=== PATIENT | male | born 1960 | race African-American/Black ===

== ENCOUNTER → 2017-04-03 | Emergency (ER) | payer OTHER ==
[~2017-04-03] VITALS: Wt 90.0 kg
[~2017-04-03] MED LIST: COU2 PO; LABETALOL HCL 20MG INJ IV ONE
--- NOTE | 2017-04-03 14:26 | ERD ---
ER Documentation Chief Complaint Chief Complaint HEADACHE WITH HTN X 1 DAYS; OUT OF HTN MEDS X 1 WEEK HPI The patient is a 56-year-old male, thing to the ER because of intermittent diffuse headache that began today, has been out of his antihypertensive medication for 1 week. He denies blurred vision, dizziness, neck pain, chest pain, dyspnea, abdominal pain, vomiting, dysuria, diarrhea. He denies smoking, drinks socially denies any illicit drug. He keeps requesting for pain medication for his chronic left leg pain Past medical history: Hypertension, chronic left leg pain Past surgical history: Aortic valve replacement ROS All systems reviewed and are negative except as per history of present illness. Medications Home Meds Reported Medications Warfarin Sod (Coumadin) 2 Mg Tab, 2 MG PO DAILY, TAB 04/03/17 Allergies Allergies: Coded Allergies: No Known Allergy (Unverified , 04/03/17) PMhx/Soc History of Surgery: Yes (HEART VALVE REPLACEMENT) Anesthesia Reaction: No Hx Neurological Disorder: No Hx Respiratory Disorders: No Hx Cardiac Disorders: Yes (HYPERTENSION) Hx Psychiatric Problems: No Hx Miscellaneous Medical Probl: No Hx Alcohol Use: No Hx Substance Use: No Hx Tobacco Use: Yes Smoking Status: Current some day smoker Physical Exam Vitals Vital Signs Date Time Temp Pulse Resp B/P Pulse Ox O2 Delivery O2 Flow Rate FiO2 04/03/17 15:44 184/94 04/03/17 14:59 87 195/109 04/03/17 14:22 98.3 96 18 191/117 99 Physical Exam Const: No acute distress. Head: Atraumatic. Eyes: Normal Conjunctiva. ENT: Normal External Ears, Nose and Mouth. Neck: Full range of motion. No meningismus. Resp: Clear to auscultation bilaterally. Cardio: Regular rate and rhythm. Abd: Soft, non distended, normal bowel sounds, non tender. Skin: No petechiae or rashes. Back: No midline or flank tenderness. Ext: No cyanosis, or edema. Neur: Awake and alert. chronic left leg weakness Psych: Normal Mood and Affect. Result Diagram: 04/03/17 1445 04/03/17 1445 Results 24 hrs Laboratory Tests Test 04/03/17 14:45 04/03/17 15:15 White Blood Count 8.010^3/ul Red Blood Count 4.5210^6/ul Hemoglobin 14.2g/dl Hematocrit 42.2% Mean Corpuscular Volume 93.4fl Mean Corpuscular Hemoglobin 31.4pg Mean Corpuscular Hemoglobin Concent 33.6g/dl Red Cell Distribution Width 13.7% Platelet Count 12889^3/UL Mean Platelet Volume 11.6fl Neutrophils % 80.3% Lymphocytes % 11.4% Monocytes % 7.5% Eosinophils % 0.3% Basophils % 0.4% Nucleated Red Blood Cells % 0.0/100WBC Neutrophils # 6.410^3/ul Lymphocytes # 0.910^3/ul Monocytes # 0.610^3/ul Eosinophils # 0.010^3/ul Basophils # 0.010^3/ul Nucleated Red Blood Cells # 0.010^3/ul Prothrombin Time 20.4Sec Prothrombin Time Ratio 1.6 INR International Normalized Ratio 1.71 Activated Partial Thromboplast Time 33.0Sec Sodium Level 145mmol/L Potassium Level 3.6mmol/L Chloride Level 107mmol/L Carbon Dioxide Level 26mmol/L Anion Gap 16 Blood Urea Nitrogen 12mg/dl Creatinine 1.23mg/dl Glucose Level 98mg/dl Calcium Level 9.3mg/dl Ethyl Alcohol Level < 10.0mg/dl Urine Opiates Screen Negative Urine Barbiturates Negative Urine Amphetamines Screen Negative Urine Benzodiazepines Screen Negative Urine Cocaine Screen Negative Urine Cannabinoids Negative Current Medications Medications (Trade) Dose Ordered Sig/Mercedes Route PRN Reason Start Time Stop Time Status Last Admin Dose Admin Labetalol HCl (Labetalol) 20 mg ONCE ONCE IV 04/03/17 15:00 04/03/17 15:01 DC 04/03/17 15:00 Procedures/MDM MEDICAL MAKING DECISION: The patient is a 56-year-old male, presenting to the ER because of acute accelerated hypertension, acute headache. He was treated with labetalol 20 mg IV for acute accelerated hypertension with good response. He keeps asking for pain medication. I advised him that we need a brain CT prior to any medication. He did not want to have a brain CT scan and left AGAINST MEDICAL ADVICE. The patient signed out AGAINST MEDICAL ADVICE. Risks, benefits, alternatives were explained to the patient. Risks include but not limited to and permanent disability Disclaimer: Inadvertent spelling and grammatical errors are likely due to EHR/ dictation software use and do not reflect on the overall quality of patient care. Also, please note that the electronic time recorded on this note does not necessarily reflect the actual time of the patient encounter. Departure Diagnosis: Primary Impression: Accelerated hypertension Condition: Stable (AMA) NATLAIE STRANGE MD Apr 03, 2017 14:26
[2017-04-03 14:59] VITALS: PULSE 87
[2017-04-03 15:34] LABS: BASOPHILS % 0.4 % (0.0-2.0); EOSINOPHILS % 0.3 % (0.0-7.0); HEMATOCRIT 42.2 % (42.0-52.0); HEMOGLOBIN 14.2 g/dl (14.0-18.0); LYMPHOCYTES # 0.9 10^3/ul (0.8-2.9); LYMPHOCYTES % 11.4 % (15.0-51.0); MEAN CORPUSCULAR HEMOGLOBIN 31.4 pg (29.0-33.0); MEAN CORPUSCULAR HGB CONC 33.6 g/dl (32.0-37.0); MEAN CORPUSCULAR VOLUME 93.4 fl (82.0-101.0); MEAN PLATELET VOLUME 11.6 fl (7.4-10.4); MONOCYTE # 0.6 10^3/ul (0.3-0.9); MONOCYTES % 7.5 % (0.0-11.0); NEUTROPHIL # 6.4 10^3/ul (1.6-7.5); NEUTROPHILS % 80.3 % (39.0-77.0); PLATELET COUNT 152 10^3/UL (140-415); RED BLOOD COUNT 4.52 10^6/ul (4.70-6.10); RED CELL DISTRIBUTION WIDTH 13.7 % (11.5-14.5)
[2017-04-03 15:44] VITALS: BP 184/94
[2017-04-03 16:05] LABS: BARBITURATES Negative (NEGATIVE); BENZODIAZEPINES Negative (NEGATIVE); CANNABINOIDS Negative (NEGATIVE); COCAINE Negative (NEGATIVE); OPIATES Negative (NEGATIVE)
[2017-04-03 16:12] LABS: ANION GAP 16 (8-16); BLOOD UREA NITROGEN 12 mg/dl (7-20); CALCIUM 9.3 mg/dl (8.4-10.2); CARBON DIOXIDE 26 mmol/L (21-31); CHLORIDE 107 mmol/L (97-110); CREATININE 1.23 mg/dl (0.61-1.24); GLUCOSE 98 mg/dl (70-220); POTASSIUM 3.6 mmol/L (3.5-5.1); SODIUM 145 mmol/L (135-144)
[2017-04-03 16:17] LABS: ETHANOL < 10.0 mg/dl
[2017-04-03 16:24] LABS: INR 1.71; PROTIME 20.4 Sec (11.9-14.9); PT RATIO 1.6
== END | disposition left against medical advice (07) ==
LOC: E/R 14:19
DX: I10 Essential (primary) hypertension (principal); F17.210 Nicotine dependence, cigarettes, uncomplicated; R07.9 Chest pain, unspecified
CPT/HCPCS: 36415; 80048; 80306; 80307; 85025; 85610; 85730; 96374; Z7502

== ENCOUNTER 2017-04-13 15:38 | Emergency (ER) | payer OTHER ==
[~2017-04-13] VITALS: Ht 165.1 cm; Wt 80.0 kg
[~2017-04-13 15:38] MED LIST changes: -LABETALOL HCL 20MG INJ IV ONE
[2017-04-13 15:51] VITALS: Ht 165.1 cm; Wt 80.0 kg
--- NOTE | 2017-04-13 17:32 | ERD ---
ER Documentation Chief Complaint Chief Complaint BIT HIS TONGUE WHEN ASLEEP HPI This is a 56-year-old male with a history of a leaky valve status post replacement with a mechanical valve on Coumadin daily, chronic daily smoking history, who is presenting with tongue pain after excellently biting his tongue approximately 4 days ago. He notes that his tongue has looked black and blue on the right side. He states that he dropped that he was eating when he bit his tongue. He does not have a seizure history, and he woke up right after he bit his tongue. He does not believe that he had a seizure. The patient states that it is been painful to eat since excellently biting his tongue. He is hoping for something for the pain. If his pain can get under control, he would like to be discharged and is requesting a cab voucher. The patient has a secondary complaint of a sore throat and very congested cough over the last week. He denies feeling sick otherwise. The patient denies fever or chills. The patient has had no headache or vision changes. The patient does not endorse neck or back pain. The patient denies lightheadedness or dizziness. The patient has had no chest pain or shortness of breath or trouble breathing. The patient denies nausea or vomiting. The patient denies abdominal pain or changes to bowel movements or urination. The patient has had no focal deficits. The patient has had no weakness or numbness or tingling to the face or extremities. ROS All systems reviewed and are negative except as per history of present illness. Medications Home Meds Reported Medications Warfarin Sod (Coumadin) 2 Mg Tab, 2 MG PO DAILY, TAB 04/03/17 Allergies Allergies: Coded Allergies: No Known Allergy (Unverified , 04/03/17) PMhx/Soc History of Surgery: Yes (HEART VALVE REPLACEMENT) Anesthesia Reaction: No Hx Neurological Disorder: No Hx Respiratory Disorders: No Hx Cardiac Disorders: Yes (HYPERTENSION) Hx Psychiatric Problems: No Hx Miscellaneous Medical Probl: No Hx Alcohol Use: No Hx Substance Use: No Hx Tobacco Use: Yes FmHx Family History: No coronary disease, No diabetes Physical Exam Vitals Vital Signs Date Time Temp Pulse Resp B/P Pulse Ox O2 Delivery O2 Flow Rate FiO2 04/13/17 15:51 98.1 89 18 134/89 99 Physical Exam Const: No apparent distress, well-developed, well-nourished Head: Normocephalic, Atraumatic Eyes: Normal Conjunctiva. Extraocular movements intact. Pupils equal, round and reactive to light ENT: Normal External Ears, Nose and Mouth. Mild edema and bruising to the right side of the tongue. No oral pharyngeal exudate or edema or erythema or purulence or asymmetry. Neck: Full range of motion. No meningismus. Resp: Clear to auscultation bilaterally, No wheezes, rales or rhonchi. Cardio: Regular rate and rhythm. Harsh systolic murmur with end systolic click. No rubs or gallops Abd: Soft, non tender, non distended. Normal bowel sounds Skin: No petechiae or rashes Back: No midline tenderness. No CVA tenderness Ext: No cyanosis, or edema Neur: Awake and alert, oriented 4. Cranial nerves intact. No facial droop. Normal strength, sensation and coordination. Psych: Normal Mood and Affect Results 24 hrs Current Medications Medications (Trade) Dose Ordered Sig/Mercedes Route PRN Reason Start Time Stop Time Status Last Admin Dose Admin Phenol (Chloraseptic Throat [place]) 2 spray ONCE ONCE MT 04/13/17 18:00 04/13/17 18:01 DC 04/13/17 18:01 Acetaminophen (Tylenol Tab) 650 mg ONCE ONCE PO 04/13/17 18:00 04/13/17 18:01 DC 04/13/17 18:01 Procedures/MDM MDM The patient's presentation warrants further investigation. The patient has unremarkable vital signs which is reassuring. He does have a mild elevation in his blood pressure, but he does have known hypertension. He may follow-up for this. The patient does not feel sick, and I have decreased suspicion for a systemic infection. I have low suspicion for influenza. The patient does have a very congested cough. I will obtain a chest x-ray to confirm that there is no pneumonia. The patient also endorses a sore throat. The patient has a cough. The patient is afebrile. The patient does not have any tonsillar exudate or cervical lymphadenopathy. He does not meet center criteria and I have low suspicion for strep pharyngitis. I do not feel that he requires rapid strep testing at this time. IMAGING CXR FINDINGS: The patient status post sternotomy and valve replacement. Heart is mildly enlarged.. There is no congestive heart failure.. There is minimal bibasilar atelectasis.. There is no pleural effusion. There is no pneumothorax. There are old fractures of the left fourth through seventh ribs.. IMPRESSION: Postoperative. Cardiomegaly. No CHF. Minimal bibasilar atelectasis. Old left rib fractures. Electronically viewed and signed by .Yo Garvey MD, MD on 04/13/2017 18:25 TREATMENT/DISPOSITION The patient will be given Cetacaine spray in the emergency department for treatment of his tongue pain. He may continue to take Tylenol at home. Given that he is on Coumadin, he was instructed to avoid ibuprofen. At this time, I feel that the patient stable for discharge. The patient will need follow-up with his primary care physician in 2-3 days. The patient will be given strict precautions with which to return to the emergency department. The patient's blood pressure was elevated at greater than 120/80 while in the emergency department. The patient was otherwise stable with no evidence of hypertensive urgency or emergency or end organ damage. The patient does not require admission for blood pressure control. I have discussed with the patient the risks of hypertension. I have advised the patient to follow up with the primary care physician for outpatient monitoring and treatment for hypertension in 2-3 days. I have instructed the patient to return to the ER for any new or worsening symptoms including chest pain, shortness of breath, headache, blurred vision, confusion, nausea, vomiting or LOC. Disclaimer: Inadvertent spelling and grammatical errors are likely due to EHR/ dictation software use and do not reflect on the overall quality of patient care. Note that the electronic time recorded on this note does not necessarily reflect the actual time of the patient encounter. Departure Diagnosis: Primary Impression: Tongue biting Additional Impression: Cough Condition: Stable CARY WOODRUFF MD Apr 13, 2017 17:32
[2017-04-13] MEDS ORDERED: PHENOL 1.4% SOLN 180 ML BTL MT ONE (18:00)
[2017-04-13] MEDS ORDERED: ACETAMINOPHEN 325 MG TAB PO ONE (18:00)
--- NOTE | 2017-04-13 18:25 | RADRPT ---
PROCEDURE: XR Chest. CLINICAL INDICATION: Cough. Congestion.. TECHNIQUE: Single frontal chest x-ray. COMPARISON: None. FINDINGS: The patient status post sternotomy and valve replacement. Heart is mildly enlarged.. There is no co ngestive heart failure.. There is minimal bibasilar atelectasis.. There is no pleural effusion. Th ere is no pneumothorax. There are old fractures of the left fourth through seventh ribs.. IMPRESSION: Postoperative. Cardiomegaly. No CHF. Minimal bibasilar atelectasis. Old left rib fractures. RPTAT: HMVK .Yo Garvey MD, MD Date Time Electronically viewed and signed by .Yo Garvey MD, on 04/13/2017 18:25 .K/
== END 2017-04-13 20:08 | disposition home or self-care (01) ==
LOC: FTE 15:38
DX: S00.532A Contusion of oral cavity, initial encounter (principal); R05 Cough; I10 Essential (primary) hypertension; F17.210 Nicotine dependence, cigarettes, uncomplicated; R01.1 Cardiac murmur, unspecified; W50.3XXA Accidental bite by another person, initial encounter; Y92.9 Unspecified place or not applicable; Z79.01 Long term (current) use of anticoagulants
CPT/HCPCS: 71010; Z7502; Z7610

== ENCOUNTER 2017-04-29 15:45 | Emergency (ER) | END 2017-04-29 18:29 | disposition left against medical advice (07) ==

== ENCOUNTER 2017-09-14 08:31 | Emergency (ER) | END 2017-09-14 10:08 | disposition left against medical advice (07) ==

== ENCOUNTER 2017-09-15 12:21 | Emergency (ER) | END 2017-09-15 15:41 | disposition left against medical advice (07) ==

== ENCOUNTER 2017-12-09 21:02 | Emergency (ER) | END 2017-12-10 03:11 | disposition home or self-care (01) ==

== ENCOUNTER 2018-01-06 13:56 | Emergency (ER) | END 2018-01-06 17:53 | disposition home or self-care (01) ==

== ENCOUNTER → 2018-01-06 | Emergency (ER) | END | disposition left against medical advice (07) ==

== ENCOUNTER 2018-01-16 12:51 | Emergency (ER) | END 2018-01-16 13:20 | disposition left against medical advice (07) ==

== ENCOUNTER 2018-01-16 18:27 | Emergency (ER) | END 2018-01-16 19:51 | disposition left against medical advice (07) ==

== ENCOUNTER 2018-02-02 12:54 | Emergency (ER) | END 2018-02-02 14:53 | disposition home or self-care (01) ==

== ENCOUNTER 2018-02-16 14:22 | Emergency (ER) | END 2018-02-16 18:19 | disposition home or self-care (01) ==

== ENCOUNTER 2018-02-25 12:11 | Emergency (ER) | END 2018-02-25 12:24 | disposition home or self-care (01) ==

== ENCOUNTER 2018-03-17 05:26 | Emergency (ER) | END 2018-03-17 11:07 | disposition home or self-care (01) ==

== ENCOUNTER 2018-04-04 13:31 | Emergency (ER) | END 2018-04-04 15:15 | disposition left against medical advice (07) ==

== ENCOUNTER 2018-04-19 18:18 | Emergency (ER) | payer OTHER ==
[~2018-04-19] VITALS: Ht 170.2 cm; Wt 84.1 kg
[~2018-04-19 18:18] MED LIST changes: -COU2 PO; +LEVE100018 PO; +LORA1TAB PO; +WARF10TA PO
[2018-04-19 18:30] VITALS: Ht 170.2 cm; Wt 84.1 kg
[2018-04-19] MEDS: ACETAMINOPHEN 325 MG TAB PO ONE (18:59)
--- NOTE | 2018-04-19 19:16 | ERD ---
ER Documentation Chief Complaint Chief Complaint ETOH INTOXICATION HPI Patient is a 57-year-old male with alcohol abuse who presents with alcohol intoxication. Please note the history and physical exam is limited secondary to the patient's alcohol intoxication. The patient reports "numbness in legs". He was brought in by ambulance. He has leg pain bilaterally as well. A bystander called 911. Upon review of old medical records the patient has multiple visits to the ER for similar complaints. Review of the emergency department information exchange system shows visits to 10 separate emergency departments. He does have a care plan. ROS All systems reviewed and are negative except as per history of present illness. Medications Home Meds Active Scripts Lorazepam* (Lorazepam*) 1 Mg Tablet, 1 MG PO Q8, #10 TAB Prov:GEORGIA MCDONALD. DO 03/17/18 Levetiracetam* (Keppra*) 1,000 Mg Tablet, 1000 MG PO BID, #60 TAB Prov:GEORGIA MCDONALD. DO 03/17/18 Reported Medications Warfarin Sodium* (Coumadin*) 10 Mg Tablet, 10 MG PO DAILY, TAB 03/17/18 Allergies Allergies: Coded Allergies: No Known Allergy (Unverified , 12/10/17) PMhx/Soc History of Surgery: Yes (HEART VALVE REPLACEMENT-ON COUMADIN) Anesthesia Reaction: No Hx Neurological Disorder: Yes (CVA) Hx Respiratory Disorders: No Hx Cardiac Disorders: Yes (HYPERTENSION) Hx Psychiatric Problems: No Hx Miscellaneous Medical Probl: No Hx Alcohol Use: Yes (ETOH ABUSE last drank 3days ago) Hx Substance Use: No Hx Tobacco Use: Yes (unk # of cig/day) Smoking Status: Current every day smoker Physical Exam Vitals Vital Signs Date Temp Pulse Resp B/P (MAP) Pulse Ox O2 O2 Flow FiO2 Time Delivery Rate 04/19/18 97.6 88 22 143/87 96 18:30 (105) Physical Exam Const: Intoxicated Head: Atraumatic Eyes: Normal Conjunctiva ENT: Normal External Ears, Nose and Mouth. Neck: Full range of motion. No meningismus. Resp: Clear to auscultation bilaterally Cardio: Regular rate and rhythm, no murmurs Abd: Soft, non tender, non distended. Normal bowel sounds Skin: No petechiae or rashes Back: No midline or flank tenderness Ext: No cyanosis, or edema Neur: Awake but intoxicated Results 24 hrs Current Medications Medications Dose Sig/Mercedes Start Time Status Last (Trade) Ordered Route PRN Stop Time Admin Dose Reason Admin 650 mg ONCE ONCE 04/19/18 DC Acetaminophen PO 18:30 04/19/18 (Tylenol 18:31 Tab) Procedures/MDM Patient is a 57-year-old male with multiple visits for alcohol intoxication who presents with alcohol intoxication. The patient will be discharged when he can ambulate on his own. He does not require further workup at this time. He was given Tylenol for pain. Departure Diagnosis: Primary Impression: Alcoholic intoxication Complication of substance-induced condition: uncomplicated Qualified Codes: F10.920 - Alcohol use, unspecified with intoxication, uncomplicated Condition: Fair Patient Instructions: Alcohol Intoxication Referrals: [facility] (PCP) Additional Instructions: Call your primary care doctor TOMORROW for an appointment during the next 1 WEEK.Tell the placement secretary that you were referred from this facility.See the doctor sooner or return here if your condition worsens before your appointment time. NIKHIL NICHOLS MD Apr 19, 2018 19:16
[2018-04-20] MEDS: ACETAMINOPHEN 325 MG TAB PO ONE (00:54)
[2018-04-20 01:02] VITALS: BP 136/88; PULSE 88; RESP 22
== END 2018-04-20 01:08 | disposition home or self-care (01) ==
LOC: E/R 18:18
DX: F10.920 Alcohol use, unspecified with intoxication, uncomplicated (principal); I10 Essential (primary) hypertension; F17.210 Nicotine dependence, cigarettes, uncomplicated; Z86.73 Personal history of transient ischemic attack (TIA), and cerebral infarction without residual deficits
CPT/HCPCS: Z7502; Z7610; 99283

== ENCOUNTER 2018-04-20 21:09 | Emergency (ER) | payer OTHER ==
[~2018-04-20] VITALS: Ht 170.2 cm; Wt 84.0 kg
[2018-04-20 21:16] VITALS: Ht 170.2 cm; Wt 84.0 kg
--- NOTE | 2018-04-20 21:32 | ERD ---
ER Documentation Chief Complaint Chief Complaint BIB RA90 for ETOH intoxication HPI This is a 57-year-old male who was found laying on a park bench with a bottle of vodka. Patient was seen here yesterday for the same thing. Bystanders called EMS to pick him up is very worried about him. The patient states that he lives office [place] the and has been drinking vodka today but did not have any trauma. Says he has chronic left leg pain and weakness. He says is at baseline. Denies any headache vomiting chest pain or abdominal pain. ROS All systems reviewed and are negative except as per history of present illness. Medications Home Meds Active Scripts Lorazepam* (Lorazepam*) 1 Mg Tablet, 1 MG PO Q8, #10 TAB Prov:GEORGIA MCDONALD. DO 03/17/18 Levetiracetam* (Keppra*) 1,000 Mg Tablet, 1000 MG PO BID, #60 TAB Prov:GEORGIA MCDONALD. DO 03/17/18 Reported Medications Warfarin Sodium* (Coumadin*) 10 Mg Tablet, 10 MG PO DAILY, TAB 03/17/18 Allergies Allergies: Coded Allergies: No Known Allergy (Unverified , 12/10/17) PMhx/Soc History of Surgery: Yes (HEART VALVE REPLACEMENT-ON COUMADIN) Anesthesia Reaction: No Hx Neurological Disorder: Yes (CVA) Hx Respiratory Disorders: No Hx Cardiac Disorders: Yes (HYPERTENSION) Hx Psychiatric Problems: No Hx Miscellaneous Medical Probl: No Hx Alcohol Use: Yes (ETOH ABUSE last drank 3days ago) Hx Substance Use: No Hx Tobacco Use: Yes (unk # of cig/day) FmHx Family History: No coronary disease Physical Exam Vitals Vital Signs Date Temp Pulse Resp B/P (MAP) Pulse Ox O2 O2 Flow FiO2 Time Delivery Rate 04/20/18 98.0 102 18 146/84 98 21:16 (104) Physical Exam Const: Well-developed, well-nourished Head: Atraumatic, normocephalic Eyes: Normal Conjunctiva, PERRLA, EOMI, normal sclera, no nystagmus ENT: Normal External Ears, Nose and Mouth, moist mucus membranes. Neck: Full range of motion. No meningismus, no lymphadenopathy. Resp: Clear to auscultation bilaterally, no wheezing, rhonchi, rales Cardio: Regular rate and rhythm, no murmurs, S1 S2 present Abd: Soft, non tender x 4, non distended. Normal bowel sounds, no guarding or rebound, no pulsitile abdominal masses or bruits Skin: No petechiae or rashes, no ecchymosis , no maculopapular rash Back: No midline or flank tenderness Ext: No cyanosis, or edema, FROM x 4, normal inspection, neurovascularly intact x 4, limited range of motion to the left leg due to chronic pain Neur: Awake and alert, STR 5/5 x 4, sensation intact x 4, no focal findings, cerebellum intact Psych: Normal Mood and Affect Procedures/MDM PROCEDURE: CT Head without. CLINICAL INDICATION: Trauma. TECHNIQUE: The study was performed utilizing a multi-slice, multidetector CT scanner. Direct spiral 1 mm axial sections were obtained through the head without the use of intravenous contrast material. 1 or more of the following dose reduction techniques were utilized: Automated exposure control, adjustment of the mA and/or kV according to patient's size, iterative reconstruction technique. Coronal and sagittal reformations were obtained. The images were reviewed on a PACS workstation. DICOM images are available. RADIATION DOSE: CTDIvol: 39.25 mGy mGy DLP: 634.23 mGy.cm mGy-cm COMPARISON: 03/17/2018 FINDINGS: There is no intracranial hemorrhage, extra-axial fluid collection, mass lesion, midline shift or hydrocephalus. There is redemonstration of encephalomalacia involving the right anterior temporal lobe, extending into the right frontal operculum, likely related to prior right MCA distribution infarct. There is subsequent ex vacuo enlargement of the frontal horn and body of the right lateral ventricle. There is mild prominence of the left lateral ventricle. There is mild prominence of the cerebral sulci and third ventricle. There is mild to moderate patchy periventricular and subcortical white matter hypodensity. There is mild arteriosclerotic calcification of the parasellar internal carotid arteries. The basal cisterns are patent. The midline structures are intact. The orbits, calvarium and extracranial soft tissues are normal in appearance. The visualized paranasal sinuses, mastoid air cells and middle ear cavities are normally aerated. IMPRESSION: 1. No acute intracranial abnormality. No intracranial hemorrhage, extra-axial fluid collection, mass lesion or hydrocephalous. 2. Stable encephalomalacia involving the right temporal lobe, right frontal operculum right frontal lobe white matter suggestive of remote prior right MCA distribution infarct, stable compared to 03/17/2018. If clinical concern for acute superimposed on chronic infarct, MRI is recommended for further evaluation. 3. Baseline of mild peripheral and central cerebral volume loss. 4. Baseline of mild to moderate patchy periventricular and subcortical white matter hypodensity, likely related to chronic microangiopathic changes. RPTAT: HGAS .Jeff Tariq MD, MD Date Time Electronically viewed and signed by .Jeff Tariq MD, MD on 04/20/2018 23:37 .S/ CC: GEORGIA MCDONALD DO [id number] The patient will be discharged he is awake alert oriented and ambulatory baseline Departure Diagnosis: Primary Impression: Alcoholic intoxication Complication of substance-induced condition: uncomplicated Qualified Codes: F10.920 - Alcohol use, unspecified with intoxication, uncomplicated Condition: Stable GEORGIA MCDONALD DO Apr 20, 2018 21:32
[2018-04-21 02:55] VITALS: BP 149/88; PULSE 84; RESP 16
== END 2018-04-21 03:14 | disposition home or self-care (01) ==
LOC: E/R 21:09
DX: F10.920 Alcohol use, unspecified with intoxication, uncomplicated (principal); R40.2142 Coma scale, eyes open, spontaneous, at arrival to emergency department; R40.2362 Coma scale, best motor response, obeys commands, at arrival to emergency department; R40.2252 Coma scale, best verbal response, oriented, at arrival to emergency department; I10 Essential (primary) hypertension; R93.0 Abnormal findings on diagnostic imaging of skull and head, not elsewhere classified; Z86.73 Personal history of transient ischemic attack (TIA), and cerebral infarction without residual deficits; Z87.891 Personal history of nicotine dependence; Z79.01 Long term (current) use of anticoagulants
CPT/HCPCS: 70450; Z7502

== ENCOUNTER 2018-06-17 00:24 | Emergency (ER) | payer OTHER ==
[~2018-06-17] VITALS: Ht 170.2 cm; Wt 84.0 kg
[2018-06-17 00:30] VITALS: Ht 170.2 cm; Wt 84.0 kg
--- NOTE | 2018-06-17 01:08 | ERD ---
ER Documentation Chief Complaint Chief Complaint left hip pain HPI The patient is a 57-year-old male, presenting to the ER because of acute left hip pain after he had a mechanical fall. He has been drinking. He is homeless living on [address]. He is not sure whether he hit his head, is awake, alert, able to answer question. He denies chest pain, dyspnea, abdominal pain, vomiting, dysuria. He smokes and drinks Past medical history: History of CVA, hypertension, alcohol dependence Past surgical history: Aortic valve repair. ROS All systems reviewed and are negative except as per history of present illness. Medications Home Meds Active Scripts Lorazepam* (Lorazepam*) 1 Mg Tablet, 1 MG PO Q8, #10 TAB Prov:LEKKOS,VANCESTOLOS A. DO 03/17/18 Levetiracetam* (Keppra*) 1,000 Mg Tablet, 1000 MG PO BID, #60 TAB Prov:LEKKOS,APOSTOLOS A. DO 03/17/18 Reported Medications Warfarin Sodium* (Coumadin*) 10 Mg Tablet, 10 MG PO DAILY, TAB 03/17/18 Allergies Allergies: Coded Allergies: No Known Allergy (Unverified , 12/10/17) PMhx/Soc History of Surgery: Yes (HEART VALVE REPLACEMENT-ON COUMADIN) Anesthesia Reaction: No Hx Neurological Disorder: Yes (CVA) Hx Respiratory Disorders: No Hx Cardiac Disorders: Yes (HYPERTENSION) Hx Psychiatric Problems: No Hx Miscellaneous Medical Probl: No Hx Alcohol Use: Yes (ETOH ABUSE last drank 3days ago) Hx Substance Use: No Hx Tobacco Use: Yes (unk # of cig/day) Physical Exam Vitals Vital Signs Date Temp Pulse Resp B/P (MAP) Pulse Ox O2 O2 Flow FiO2 Time Delivery Rate 06/17/18 98.4 77 16 123/81 95 Room Air 02:54 (95) Physical Exam Const: No acute distress. Unkempt Head: Atraumatic. Eyes: Normal Conjunctiva. ENT: Normal External Ears, Nose and Mouth. Neck: Full range of motion. No meningismus. Resp: Clear to auscultation bilaterally. Cardio: Regular rate and rhythm. Abd: Soft, non distended, normal bowel sounds, non tender. Skin: No petechiae or rashes. Back: No midline or flank tenderness. Ext: No cyanosis, or edema. Left hip with mild tenderness Neur: Awake and alert. No focal deficit. Limited to his condition Psych: Intoxicated Result Diagram: 06/17/18 0230 06/17/18229 Results 24 hrs Laboratory Tests Test 06/17/18 02:30 White Blood Count 4.5 10^3/ul Red Blood Count 4.50 10^6/ul Hemoglobin 13.7 g/dl Hematocrit 43.2 % Mean Corpuscular Volume 96.0 fl Mean Corpuscular Hemoglobin 30.4 pg Mean Corpuscular Hemoglobin Concent 31.7 g/dl Red Cell Distribution Width 15.9 % Platelet Count 126 10^3/UL Mean Platelet Volume 11.6 fl Immature Granulocytes % 0.200 % Neutrophils % 55.4 % Lymphocytes % 33.8 % Monocytes % 7.8 % Eosinophils % 2.4 % Basophils % 0.4 % Nucleated Red Blood Cells % 0.0 /100WBC Immature Granulocytes # 0.010 10^3/ul Neutrophils # 2.5 10^3/ul Lymphocytes # 1.5 10^3/ul Monocytes # 0.4 10^3/ul Eosinophils # 0.1 10^3/ul Basophils # 0.0 10^3/ul Nucleated Red Blood Cells # 0.0 10^3/ul Prothrombin Time 31.9 Sec Prothrombin Time Ratio 2.5 INR International Normalized Ratio 3.09 Activated Partial Thromboplast Time 42.9 Sec Sodium Level 147 mmol/L Potassium Level 4.1 mmol/L Chloride Level 113 mmol/L Carbon Dioxide Level 22 mmol/L Anion Gap 12 Blood Urea Nitrogen 14 mg/dl Creatinine 1.23 mg/dl Est Glomerular Filtrat Rate mL/min > 60 mL/min Glucose Level 109 mg/dl Calcium Level 9.2 mg/dl Procedures/[place] [id number] Radiology Main Line: [phone] DIAGNOSTIC IMAGING REPORT Patient: TERRI HERMAN : 1960 Age: 57 Sex: M MR #: [id number] DOS: 06/17/18 0109 Ordering MD: NATALIE STRANGE MD Location: [facility] Room/Bed: PROCEDURE: CT Brain without contrast. CLINICAL INDICATION: Headache. Alcohol use. TECHNIQUE: Axial images from the skull base through the vertex without IV contrast. Multiplanar reformatted images were made. Images were reviewed on a PACS workstation. The CTDIvol is38.93 mGymGy and the DLP is858.77 mGy.cm mGycm. One or more of the following dose reduction techniques were used: automated exposure control, adjustment of the mA and/or kV according to patient size, or use of iterative reconstruction technique. DICOM images are available. COMPARISON: 04/20/2018 FINDINGS: The study is slightly limited by patient motion. Again seen is background of atrophy and chronic microvascular ischemic changes with encephalomalacia from old right MCA territory infarct. Intracranial vascular calcification is seen. Ex vacuo dilatation of the right lateral ventricle. No gross acute territorial infarction or intracranial hemorrhage. No mass or midline shift is seen. No gross visible calvarial fracture.. Probable polyp or retention cyst of the left maxillary sinus. Degenerative change of the temporomandibular joints.. . IMPRESSION: Study slightly limited by motion. No gross acute intracranial abnormality.. . RPTAT: [facility] Physician Moises Date Time Electronically viewed and signed by Physician Moises on 06/17/2018 02:41 LE/ CC: NATALIE STRANGE MD [id number] [place] [id number] Radiology Main Line: [phone] DIAGNOSTIC IMAGING REPORT Patient: TERRI HERMAN : 1960 Age: 57 Sex: M MR #: [id number] DOS: 06/17/18 0109 Ordering MD: NATALIE STRANGE MD Location: [facility] Room/Bed: PROCEDURE: CT Cervical Spine. CLINICAL INDICATION: Neck pain TECHNIQUE: Helical CT scanning which forms the basis for coronal and sagittal reformatted images. All CT scans at this facility use dose modulation, iterative reconstruction, and/or weight-based dosing when appropriate to reduce radiation dose to as low as reasonably achievable. The CTDIvol is 22.38 mGymGy and the DLP is 650.28 mGy.cmmGycm. One or more of the following dose reduction techniques were used: automated exposure control, adjustment of the mA and/or kV according to patient size, or use of iterative reconstruction technique. DICOM images are available. COMPARISON: None. FINDINGS: There is slight reversal of cervical lordosis which may be secondary to spasm or positioning. . No prevertebral soft tissue swelling is seen.. No fracture or significant listhesis is seen.. There are moderate degenerative changes throughout the cervical spine with osteophytes and endplate irregularities throughout with uncovertebral hypertrophic changes throughout as well contribute to multilevel foraminal narrowing. Atherosclerotic change of the thoracic aorta. Median sternotomy wires. Partially imaged changes from old right MCA infarct. Moderate cerumen is seen in the external auditory canals. IMPRESSION: No definite fracture or significant listhesis. Clinical clearance of the cervical spine is still advised. Degenerative change of the cervical spine. RPTAT: [facility] Physician Moises Date Time Electronically viewed and signed by Physician Moises on 06/17/2018 02:45 LE/ CC: NATALIE STRANGE MD [id number] [place] [id number] Radiology Main Line: [phone] DIAGNOSTIC IMAGING REPORT Patient: TERRI HERMAN : 1960 Age: 57 Sex: M MR #: [id number] DOS: 06/17/18 0109 Ordering MD: NATALIE STRANGE MD Location: [facility] Room/Bed: PROCEDURE: XR Chest. CLINICAL INDICATION: Headache TECHNIQUE: Portable single view of the chest COMPARISON: CR PORT CHEST 04/22/2018; SD CR CHEST 03/29/2018; CR PORT CHEST FINDINGS: Median sternotomy wires, cardiomegaly, prosthetic valve, and atherosclerotic ao rta again seen. Mild pulmonary vascular congestion with trace fluid in the minor fissure. No focal infiltrate or large pleural effusion.. IMPRESSION: Probable very mild congestive heart failure.. RPTAT: [facility] Physician Moises Date Time Electronically viewed and signed by Carrie Leggett Physician on 06/17/2018 02:42 LE/ CC: NATALIE STRANGE MD [id number] [place] [id number] Radiology Main Line: [phone] DIAGNOSTIC IMAGING REPORT Patient: TERRI HERMAN : 1960 Age: 57 Sex: M MR #: [id number] DOS: 06/17/18 0109 Ordering MD: NATALIE STRANGE MD Location: [facility] Room/Bed: PROCEDURE: CT pelvis CLINICAL INDICATION: Trauma. Pelvic pain. TECHNIQUE: Thin section spiral CT images through the pelvis without contrast. Multiplanar reconstructions. The CTDIvol is 16.04 mGy and the DLP is 561.27 mGycm. One or more of the following dose reduction techniques were used: autom ated exposure control, adjustment of the mA and/or kV according to patient size, or use of iterative reconstruction technique. DICOM images are available. COMPARISON: 12/09/2017 x-rays FINDINGS: There is edema of the subcutaneous fat of the anterior abdominal wall. Normal appendix. Atherosclerotic change of the visualized pelvic vasculature. Central prostate calcification. Small fat-containing bilateral inguinal hernias. Mild degenerative change of the lower lumbar spine. No fracture or dislocation of the pelvis or hips is seen. There are mild degenerative changes of the hips with slight joint space narrowing. IMPRESSION: No definite acute bony abnormality. Fat-containing bilateral inguinal hernias. RPTAT: [facility] Physician Moises Date Time Electronically viewed and signed by Physician Moises on 06/17/2018 02:48 LE/ CC: NATALIE STRANGE MD [id number] MEDICAL MAKING DECISION: The patient is a 57-year-old male, presenting with acute left hip pain, alcohol abuse. He is resting comfortably, is above outpatient follow-up The differential diagnoses considered include but are not limited to fracture, contusion, internal derangement, alcohol dependence Departure Diagnosis: Primary Impression: Hip pain, left Additional Impressions: Alcohol abuse Pancytopenia Condition: Good Comments He will be discharged in the morning when he jeannette I have provided a medical screening exam and evaluation. Referral to outpatient behavioral health for follow up is indicated and referrals were provided. The patient is clinically stable for discharge. I have communicated after-visit instructions and plan to the patient. Because patient has been identified as without residence, the hospital policy and process for discharge requirements have been initiated by appropriate hospital staff. NATALIE STRANGE MD Jun 17, 2018 01:08
[2018-06-17 05:34] VITALS: BP 118/83; PULSE 75; RESP 16
== END 2018-06-17 05:33 | disposition home or self-care (01) ==
LOC: FTE 00:24
DX: M25.552 Pain in left hip (principal); F10.10 Alcohol abuse, uncomplicated; D61.818 Other pancytopenia; R40.2122 Coma scale, eyes open, to pain, at arrival to emergency department; R40.2242 Coma scale, best verbal response, confused conversation, at arrival to emergency department; R40.2352 Coma scale, best motor response, localizes pain, at arrival to emergency department; I10 Essential (primary) hypertension; Z86.73 Personal history of transient ischemic attack (TIA), and cerebral infarction without residual deficits; Z87.891 Personal history of nicotine dependence; Z79.01 Long term (current) use of anticoagulants
CPT/HCPCS: 36415; 70450; 71045; 72125; 72192; 80048; 85025; 85610; 85730; Z7502

== ENCOUNTER 2018-09-15 19:46 | Emergency (ER) | payer OTHER ==
[~2018-09-15] VITALS: Ht 170.2 cm; Wt 84.0 kg
[2018-09-15 20:04] VITALS: Ht 170.2 cm; Wt 84.0 kg
--- NOTE | 2018-09-15 20:45 | ERD ---
ER Documentation Chief Complaint Chief Complaint [id number],ETOH intoxication HPI This is a 58-year-old male who was brought in for alcohol intoxication. Patient was found in the streets, intoxicated with EtOH, he denies any trauma. Currently patient denies any nausea or vomiting, history is limited secondary to his intoxication. ROS All systems reviewed and are negative except as per history of present illness. Medications Home Meds Discontinued Reported Medications Warfarin Sodium* (Coumadin*) 10 Mg Tablet, 10 MG PO DAILY, TAB 03/17/18 Discontinued Scripts Lorazepam* (Lorazepam*) 1 Mg Tablet, 1 MG PO Q8, #10 TAB Prov:LEKKOS,APOSTOLOS A. DO 03/17/18 Levetiracetam* (Keppra*) 1,000 Mg Tablet, 1000 MG PO BID, #60 TAB Prov:LEKKOS,APOSTOLOS A. DO 03/17/18 Allergies Allergies: Coded Allergies: No Known Allergy (Unverified , 12/10/17) PMhx/Soc History of Surgery: Yes (HEART VALVE REPLACEMENT-ON COUMADIN) Anesthesia Reaction: No Hx Neurological Disorder: Yes (CVA) Hx Respiratory Disorders: No Hx Cardiac Disorders: Yes (HYPERTENSION) Hx Psychiatric Problems: No Hx Miscellaneous Medical Probl: No Hx Alcohol Use: Yes (ETOH ABUSE ) Hx Substance Use: No Hx Tobacco Use: Yes (unk # of cig/day) Smoking Status: Current every day smoker Physical Exam Vitals Vital Signs Date Temp Pulse Resp B/P (MAP) Pulse Ox O2 O2 Flow FiO2 Time Delivery Rate 09/16/18 88 18 138/82 95 Room Air 02:00 (100) 09/15/18 82 18 143/82 94 Room Air 23:00 (102) 09/15/18 97.6 87 18 149/84 97 Room Air 20:19 (105) 09/15/18 97.6 78 18 149/84 98 20:04 (105) Physical Exam Const: Disheveled appearing, intoxicated with EtOH. Head: Atraumatic Eyes: Normal Conjunctiva ENT: Normal External Ears, Nose and Mouth. Neck: Full range of motion. No meningismus. Resp: Clear to auscultation bilaterally Cardio: Regular rate and rhythm, no murmurs Abd: Soft, non tender, non distended. Normal bowel sounds Skin: No petechiae or rashes Back: No midline or flank tenderness Ext: No cyanosis, or edema Neur: Asleep, easily arousable Psych: Normal Mood and Affect Result Diagram: 09/15/182119 Results 24 hrs Laboratory Tests Test 09/15/18 21:20 09/15/18 21:24 White Blood Count 5.2 10^3/ul Red Blood Count 4.27 10^6/ul Hemoglobin 13.3 g/dl Hematocrit 40.4 % Mean Corpuscular Volume 94.6 fl Mean Corpuscular Hemoglobin 31.1 pg Mean Corpuscular Hemoglobin Concent 32.9 g/dl Red Cell Distribution Width 14.7 % Platelet Count 171 10^3/UL Mean Platelet Volume 10.0 fl Immature Granulocytes % 0.200 % Neutrophils % 56.6 % Lymphocytes % 33.6 % Monocytes % 7.3 % Eosinophils % 1.7 % Basophils % 0.6 % Nucleated Red Blood Cells % 0.0 /100WBC Immature Granulocytes # 0.010 10^3/ul Neutrophils # 3.0 10^3/ul Lymphocytes # 1.8 10^3/ul Monocytes # 0.4 10^3/ul Eosinophils # 0.1 10^3/ul Basophils # 0.0 10^3/ul Nucleated Red Blood Cells # 0.0 10^3/ul Prothrombin Time 39.4 Sec Prothrombin Time Ratio 3.1 INR International Normalized Ratio 4.06 Activated Partial Thromboplast Time 51.8 Sec Total Bilirubin 0.4 mg/dl Direct Bilirubin 0.00 mg/dl Indirect Bilirubin 0.4 mg/dl Aspartate Amino Transf (AST/SGOT) 60 IU/L Alanine Aminotransferase (ALT/SGPT) 31 IU/L Alkaline Phosphatase 80 IU/L Total Protein 8.1 g/dl Albumin 4.2 g/dl Bedside Glucose 111 mg/dL Procedures/MDM 58-year-old male presents for evaluation of alcohol intoxication. On initial assessment patient was clearly intoxicated with alcohol, will monitor and reassess. 3:40 AM: Patient is now ambulatory, has a steady gait, states that he does not want to stay in the hospital, CT brain was negative, and labs overall unremarkable, patient left prior to receiving discharge instructions, at discharge she was in no distress. Departure Diagnosis: Primary Impression: Alcoholic intoxication Complication of substance-induced condition: uncomplicated Qualified Codes: F10.920 - Alcohol use, unspecified with intoxication, uncomplicated Condition: Stable STEVENSCARMEN MD September 15, 2018 20:45
[2018-09-16 04:10] VITALS: BP 148/83; PULSE 87; RESP 18
== END 2018-09-16 04:26 | disposition home or self-care (01) ==
LOC: E/R 19:46
DX: F10.920 Alcohol use, unspecified with intoxication, uncomplicated (principal); I10 Essential (primary) hypertension; F17.210 Nicotine dependence, cigarettes, uncomplicated; R07.9 Chest pain, unspecified; R51 Headache; Z86.73 Personal history of transient ischemic attack (TIA), and cerebral infarction without residual deficits
CPT/HCPCS: 70450; 71045; 80076; 82962; 85025; 85610; 85730; Z7502

== ENCOUNTER 2018-11-11 15:58 | Emergency (ER) | payer OTHER ==
[~2018-11-11] VITALS: Wt 85.0 kg
[~2018-11-11 15:58] MED LIST changes: +COU10 PO; +IBUP-1542 PO; -LEVE100018 PO; -LORA1TAB PO; -WARF10TA PO
[2018-11-11 16:07] VITALS: BP 169/81; PULSE 78; RESP 18
--- NOTE | 2018-11-11 16:22 | ERD ---
ER Documentation Chief Complaint Chief Complaint LEFT LEG PAIN X 2 HOURS HX OF STROKE OFF BLOOD THINNERS X 1 WEEK HPI Remote history of stroke and aortic valve replacement. Patient is supposed to be on Coumadin 10 mg nightly for the past 1 week patient is not taking it because he ran out. He did not ask his doctor for more. Here today for refill of his Coumadin. Patient states that for the past several months his left lower extremity has been hurting. Denies any trauma to it. No fevers or chills. No chest pain or shortness of breath. ROS All systems reviewed and are negative except as per history of present illness. Medications Home Meds No Active Prescriptions or Reported Meds Allergies Allergies: Coded Allergies: No Known Allergy (Unverified , 11/11/18) PMhx/Soc History of Surgery: Yes (HEART VALVE REPLACEMENT-ON COUMADIN) Anesthesia Reaction: No Hx Neurological Disorder: Yes (CVA) Hx Respiratory Disorders: No Hx Cardiac Disorders: Yes (HYPERTENSION) Hx Psychiatric Problems: No Hx Miscellaneous Medical Probl: No Hx Alcohol Use: Yes (ETOH ABUSE ) Hx Substance Use: No Hx Tobacco Use: Yes (unk # of cig/day) Physical Exam Vitals Vital Signs Date Temp Pulse Resp B/P (MAP) Pulse Ox O2 O2 Flow FiO2 Time Delivery Rate 11/11/18 Nasal 16:29 Cannula 11/11/18 98.0 78 18 169/81 99 16:07 (110) Physical Exam Const: No acute distress Head: Atraumatic Eyes: Normal Conjunctiva ENT: Normal External Ears, Nose and Mouth. Neck: Full range of motion. No meningismus. Resp: Clear to auscultation bilaterally Cardio: Regular rate and rhythm, no murmurs Abd: Soft, non tender, non distended. Normal bowel sounds Skin: No petechiae or rashes Back: No midline or flank tenderness Lower Extremity -left]: Skin: No laceration, or evidence of external trauma Compartments: Soft Motor: Full active range of motion hip/knee/ankle/foot Sensation: Intact to light touch FDWS/dorsal lateral toes/MF/LF/Plantar calcaneal surface Bones: Nontender pelvis/knee/proximal tibia/ malleoli/foot Joints: No effusion or laxity Pulses/Perfusion: 2+ DP, Capillary refill < 2 seconds Nailbeds: Intact without significant subungal hematoma Neur: Awake and alert Psych: Normal Mood and Affect Result Diagram: 11/11/18 1634 11/11/18 1634 Results 24 hrs Laboratory Tests Test 11/11/18 16:34 White Blood Count 4.4 10^3/ul Red Blood Count 3.81 10^6/ul Hemoglobin 11.7 g/dl Hematocrit 36.2 % Mean Corpuscular Volume 95.0 fl Mean Corpuscular Hemoglobin 30.7 pg Mean Corpuscular Hemoglobin Concent 32.3 g/dl Red Cell Distribution Width 14.6 % Platelet Count 189 10^3/UL Mean Platelet Volume 10.5 fl Immature Granulocytes % 0.200 % Neutrophils % 68.5 % Lymphocytes % 19.9 % Monocytes % 8.7 % Eosinophils % 2.5 % Basophils % 0.2 % Nucleated Red Blood Cells % 0.0 /100WBC Immature Granulocytes # 0.010 10^3/ul Neutrophils # 3.0 10^3/ul Lymphocytes # 0.9 10^3/ul Monocytes # 0.4 10^3/ul Eosinophils # 0.1 10^3/ul Basophils # 0.0 10^3/ul Nucleated Red Blood Cells # 0.0 10^3/ul Prothrombin Time 18.5 Sec Prothrombin Time Ratio 1.4 INR International Normalized Ratio 1.53 Activated Partial Thromboplast Time 33.1 Sec Sodium Level 148 mmol/L Potassium Level 3.7 mmol/L Chloride Level 113 mmol/L Carbon Dioxide Level 27 mmol/L Anion Gap 8 Blood Urea Nitrogen 11 mg/dl Creatinine 1.15 mg/dl Est Glomerular Filtrat Rate mL/min > 60 mL/min Glucose Level 116 mg/dl Calcium Level 9.4 mg/dl Current Medications Medications Dose Sig/Mercedes Start Time Status Last (Trade) Ordered Route PRN Stop Time Admin Dose Reason Admin 1 tab ONCE ONCE 11/11/18 DC 11/11/18 Acetaminophen PO 16:30 16:32 / 11/11/18 16:31 Hydrocodone Bitart ([place] (5/325)) Procedures/MDM Patient here for Coumadin refill. INR is low. Patient also having pain to the left lower extremity. Minimal edema. Recommending ultrasound to rule out DVT however patient is refusing this. Understands risk of missing a DVT. Including . We will risk prescribed patient's Coumadin patient will follow-up with his doctor next week. Strict return precautions were given. Low suspicion for traumatic injury to left lower extremity. Departure Diagnosis: Primary Impression: Pain of left leg Condition: Stable NATALIE UNGER MD Nov 11, 2018 16:22
[2018-11-11] MEDS ORDERED: HYDROCODONE/APAP (5/325) TAB PO ONE (16:30)
== END 2018-11-11 17:57 | disposition home or self-care (01) ==
LOC: E/R 15:58
DX: M79.605 Pain in left leg (principal); R40.2142 Coma scale, eyes open, spontaneous, at arrival to emergency department; R40.2252 Coma scale, best verbal response, oriented, at arrival to emergency department; R40.2362 Coma scale, best motor response, obeys commands, at arrival to emergency department; Z79.01 Long term (current) use of anticoagulants; Z86.73 Personal history of transient ischemic attack (TIA), and cerebral infarction without residual deficits; Z87.891 Personal history of nicotine dependence
CPT/HCPCS: 80048; 85025; 85610; 85730; Z7502; Z7610; 99283

== ENCOUNTER 2018-11-16 04:27 | Emergency (ER) | payer OTHER ==
[~2018-11-16] VITALS: Ht 170.2 cm; Wt 81.1 kg
[2018-11-16 04:38] VITALS: Ht 170.2 cm; Wt 81.1 kg
[2018-11-16] MEDS ORDERED: KETOROLAC 15 MG INJ IV ONE (06:22)
--- NOTE | 2018-11-16 06:23 | ERD ---
ER Documentation Chief Complaint Chief Complaint BIB RA FROM HOME S/P UNWITNESSED SEIZURE. HPI This is a 58-year-old male with a past medical history of hypertension, heart valve replacement on Coumadin, chronic alcohol abuse with reported past alcohol withdrawal related seizures, unclear if the patient has had seizures outside of alcohol withdrawal who is presenting after a syncopal event. The patient was reportedly at home and was found to be unresponsive. There is no witnessed tonic-clonic shaking event, but the patient was confused immediately after the event. He bit his tongue. He also reports left ankle swelling and pain, indicating the possibility that he fell. In route to the hospital, the patient's mentation improved. He is currently alert and oriented x3. Unfortunately, he does not have insight into what happened today. The patient does not believe that he is in alcohol withdrawal at this time. He reports continuing to drink. He does not endorse anxiousness or tremulousness or nausea or abdominal cramping/pain. The patient denies feeling sick recently. The patient denies fever or chills. The patient has had no headache or vision changes. The patient does not endorse neck or back pain. The patient denies lightheadedness or dizziness. The patient has had no chest pain or trouble breathing. The patient denies changes to bowel movements or urination. The patient has had no focal deficits. The patient has had no weakness or numbness or tingling to the face or extremities. ROS All systems reviewed and are negative except as per history of present illness. Medications Home Meds Active Scripts Ibuprofen* (Motrin*) 600 Mg Tab, 600 MG PO Q6H PRN for PAIN AND/OR INFLAMMATION, #30 TAB Prov:CARY WOODRUFF MD 11/16/18 Warfarin Sodium (Coumadin) 10 Mg Tablet, 10 MG PO DAILY for 7 Days, TAB Prov:NATALIE UNGER MD 11/11/18 Allergies Allergies: Coded Allergies: No Known Allergy (Unverified , 11/11/18) PMhx/Soc History of Surgery: Yes (HEART VALVE REPLACEMENT-ON COUMADIN) Anesthesia Reaction: No Hx Neurological Disorder: Yes (CVA) Hx Respiratory Disorders: No Hx Cardiac Disorders: Yes (HYPERTENSION) Hx Psychiatric Problems: No Hx Miscellaneous Medical Probl: No Hx Alcohol Use: Yes (ETOH ABUSE ) Hx Substance Use: No Hx Tobacco Use: Yes Smoking Status: Current every day smoker Fmx Family History: No diabetes Physical Exam Vitals Vital Signs Date Temp Pulse Resp B/P (MAP) Pulse Ox O2 O2 Flow FiO2 Time Delivery Rate 11/16/18 90 20 162/78 98 Room Air 07:20 (106) 11/16/18 97.6 111 19 186/108 98 04:38 (134) Physical Exam Const: No apparent distress, well-developed, well-nourished Head: Normocephalic, Atraumatic Eyes: Normal Conjunctiva. Extraocular movements intact. Pupils equal, round and reactive to light ENT: Normal External Ears, Nose. Dry mucous membranes. Small right tongue laceration. Neck: Full range of motion. No meningismus. Resp: Clear to auscultation bilaterally, No wheezes, rales or rhonchi Cardio: Regular rate and rhythm. Systolic murmur. No rubs or gallops Abd: Soft, non tender, non distended. Normal bowel sounds Skin: No petechiae or rashes Back: No midline tenderness. No CVA tenderness Ext: No cyanosis. Mild anterior left ankle tenderness and swelling, no posterior tenderness. Ambulatory without difficulty. Neur: Awake and alert, oriented 4. Cranial nerves intact. No facial droop. Normal strength, sensation and coordination. Psych: Normal Mood and Affect Result Diagram: 11/16/1845411/16/18454 Results 24 hrs Laboratory Tests Test 11/16/18 04:32 11/16/18 04:55 Bedside Glucose 179 mg/dL White Blood Count 5.5 10^3/ul Red Blood Count 4.16 10^6/ul Hemoglobin 12.8 g/dl Hematocrit 41.1 % Mean Corpuscular Volume 98.8 fl Mean Corpuscular Hemoglobin 30.8 pg Mean Corpuscular Hemoglobin Concent 31.1 g/dl Red Cell Distribution Width 14.8 % Platelet Count 175 10^3/UL Mean Platelet Volume 11.2 fl Immature Granulocytes % 0.400 % Neutrophils % 69.9 % Lymphocytes % 22.0 % Monocytes % 5.3 % Eosinophils % 2.0 % Basophils % 0.4 % Nucleated Red Blood Cells % 0.0 /100WBC Immature Granulocytes # 0.020 10^3/ul Neutrophils # 3.8 10^3/ul Lymphocytes # 1.2 10^3/ul Monocytes # 0.3 10^3/ul Eosinophils # 0.1 10^3/ul Basophils # 0.0 10^3/ul Nucleated Red Blood Cells # 0.0 10^3/ul Prothrombin Time 27.8 Sec Prothrombin Time Ratio 2.2 INR International Normalized Ratio 2.59 Urine Color YELLOW Urine Clarity CLEAR Urine pH 5.0 Urine Specific [place] 1.011 Urine Ketones NEGATIVE mg/dL Urine Nitrite NEGATIVE mg/dL Urine Bilirubin NEGATIVE mg/dL Urine Urobilinogen NEGATIVE mg/dL Urine Leukocyte Esterase NEGATIVE [place]/ul Urine Microscopic RBC 0 /HPF Urine Microscopic WBC 0 /HPF Urine Hemoglobin 2+ mg/dL Urine Glucose NEGATIVE mg/dL Urine Total Protein 3+ mg/dl Sodium Level 147 mmol/L Potassium Level 4.3 mmol/L Chloride Level 112 mmol/L Carbon Dioxide Level 16 mmol/L Anion Gap 19 Blood Urea Nitrogen 8 mg/dl Creatinine 1.38 mg/dl Est Glomerular Filtrat Rate mL/min > 60 mL/min Glucose Level 163 mg/dl Calcium Level 9.5 mg/dl Troponin I 0.075 ng/ml Current Medications Medications Dose Sig/Mercedes Start Time Status Last (Trade) Ordered Route PRN Stop Time Admin Dose Reason Admin Ketorolac 15 mg ONCE ONCE 11/16/18 DC 11/16/18 Tromethamine IV 06:22 11/16/18 06:51 (Toradol) 06:23 Sodium 500 ml @ Q1H ONCE 11/16/18 DC 11/16/18 Chloride 500 mls/hr IV 06:30 11/16/18 06:43 07:29 Procedures/MDM MDM The patient's presentation warrants further investigation. Previous medical records, if available, were reviewed. LABS The patient's laboratory testing was obtained and reviewed. No emergent treatment was required unless described below. CBC: Normocytic anemia, not emergent. No E/o systemic infection or severe anemia or thrombocytopenia Chemistry: Hyperglycemia without diabetic ketoacidosis. Anion gap metabolic acidosis, potentially related to a seizure event versus related to alcoholic ketosis. Elevated creatinine in line with known chronic kidney disease based on previous studies. PT/INR: Elevated, indicating Coumadin use Troponin: Within normal limits Urine: Glucosuria and proteinuria, concerning for nephropathy. No E/o acute infection or hematuria EKG EKG read by me: Rate/Rhythm: Regular rate and rhythm at a rate of 95 bpm Intervals: Normal [place]: Left axis deviation Impression: No evidence of acute ischemia or arrhythmia IMAGING Imaging and Radiology interpretation reviewed. CXR FINDINGS: Hypoventilatory chest. Aortic valve prosthesis in place. Unremarkable sternotomy sutures. Mild cardiomegaly. Calcific atherosclerosis of the aorta. There is increased density along the lateral left lower lung that may represent atelectasis however infiltrate should be excluded. Tiny left pleural effusion cannot be exclude. Remainder lungs are clear. No evidence right pleural effusion. No pneumothorax. No evidence of pulmonary vascular congestion. IMPRESSION: 1. Mild cardiomegaly without congestive heart failure. 2. Increased density along the lateral left base may all be due to atelectasis however an acute infiltrate and small left pleural effusion should be excluded. Electronically viewed and signed by Physician Jin on 11/16/2018 05:01 CT head IMPRESSION: 1. No acute intracranial change. 2. Remote right MCA territory infarct with diffuse encephalomalacia/gliosis involving the right temporal lobe, the frontal operculum, insular cortex , right basal ganglia, right lowe radiata, and centrum semiovale. 3. Moderate right temporal and bilateral cerebellar with mild left cerebral parenchymal volume loss. 4. Mild to moderate chronic microvascular white matter ischemic disease. Electronically viewed and signed by Physician Celia on 11/16/2018 05:22 TREATMENT/DISPOSITION The patient presents after a syncopal versus breakthrough seizure event. The patient did appear to have a postictal period, and he did bite his tongue sustaining a minor laceration. I do have high suspicion for a breakthrough seizure over a syncopal event. The patient continues to drink alcohol. He does not have symptoms of alcohol withdrawal at this time. I have decreased suspicion for an emergent alcohol withdrawal related seizure. The nature of the patient's seizure disorder is unclear. He will need to follow-up with his primary care physician and/or a neurologist for further assessment. The patient was observed in the emergency department for several hours. He did not have any subsequent events. Other etiologies were considered. The patient has no focal deficits. The neurologic exam is reassuring. I have decreased suspicion for cerebral ischemia. There was no trauma or injury. There is no personal or family history of cerebral aneurysm. I have decreased suspicion for SAH or other ICH. I have low suspicion for temporal arteritis, cavernous venous thrombosis, subdural hematom a, epidural hematoma, meningitis. The patient has a reassuring physical exam. The patient is not clinically orthostatic. The patient is not dizzy. I have decreased suspicion for vertigo. The patient has no signs of emergent or symptomatic anemia. The patient does not have any emergent electrolyte or metabolic emergencies. I have decrease suspicion for a thyroid disorder. The patient is not toxic appearing. I have decreased suspicion for an infectious etiology of symptoms. The patient's EKG and troponin are reassuring. I have low suspicion for acute coronary syndrome. I do not see evidence of any emergent cardiac arrhythmia, which includes but is not limited to heart block, Brugada syndrome or WPW. I have low suspicion for hypertrophic cardiomyopathy. I do not see evidence of CHF. The patient does not endorse any chest or pleuritic pain. The history is negative for bleeding or clotting disorders. The patient has not been involved in any recent prolonged trips or surgeries or hospitalizations. The patient has no calf tenderness or swelling. I have decreased suspicion for PE as the e tiology of symptoms. The patient does appear to have fallen during this event and sustained a minor ankle injury. I do suspect an ankle sprain. Using [place] ankle rules, I do not feel the patient requires further imaging. I have low suspicion for fracture or dislocation. I do not feel the patient's tongue laceration warrants repair at this time. It would increase the risk of infection. They will heal on its own the secondary intention. DISCHARGE Upon reevaluation of the patient, symptoms have improved. No emergent diagnoses were identified. At this time, I feel that the patient stable for discharge. The patient was instructed to follow-up with a primary care physician in 1-3 days. The patient will be given strict precautions with which to return to the emergency department. Prescriptions: Ibuprofen The patient's blood pressure was elevated at greater than 120/80 while in the emergency department. The patient was otherwise stable with no evidence of hypertensive urgency or emergency. The patient does not require admission for blood pressure control. I have discussed with the patient the risks of hypertension. I have instructed the patient to return to the ER for any new or worsening symptoms including chest pain, shortness of breath, headache, blurred vision, confusion, nausea, vomiting or LOC. I have advised the patient to follow up with the primary care physician for outpatient monitoring and treatment for hypertension in 1-3 days. DISCLAIMER Inadvertent spelling and grammatical errors are likely due to EHR/dictation software use and do not reflect on the overall quality of patient care. Note that the electronic time recorded on this note does not necessarily reflect the actual time of the patient encounter. Departure Diagnosis: Primary Impression: Breakthrough seizure Additional Impressions: Normocytic anemia High anion gap metabolic acidosis Chronic kidney disease Chronic kidney disease stage: unspecified stage Qualified Codes: N18.9 - Chronic kidney disease, unspecified Cerebrovascular accident, old Left ankle sprain Encounter type: initial encounter Involved ligament of ankle: unspecified ligament Qualified Codes: S93.402A - Sprain of unspecified ligament of left ankle, initial encounter Laceration of tongue without complication Encounter type: initial encounter Qualified Codes: S01.512A - Laceration without foreign body of oral cavity, initial encounter Condition: Stable Patient Instructions: Seizure, Recurrent [Adult], Treating Ankle Sprains Additional Instructions: Thank you for for coming to [facility] for your care today. Please ask your nurse or provider if you have questions about your care today and do not leave until all your questions have been answered. Please use any medications given as directed and follow-up with your doctor (or the doctor you were referred to) in the next 1-3 days. If you do not have a primary care doctor you may follow up at [place] [facility] [place] [facility] (listed below). You may also use motrin and tylenol as needed for fever and/or pain unless instructed otherwise by your provider or nurse. Indications for more urgent follow-up have been discussed, but you may return to the Emergency Department at ANY time for any worrisome or worsening symptoms. If you have abdominal pain, please know that no test or exam you received is perfect and you should follow up within 8 hours for continued pain. If you had any imaging studies today, such as an X-Ray or CT Scan, these studies will be reviewed later by a radiologist. You will be called if there are important findings that were not identified today, so make sure the contact information you provided at registration is correct. If you received any narcotic pain control medicine today, such as Vicodin, Morphine or Dilaudid, your coordination and judgment may be affected for a number of hours. Please do not drive or operate heavy machinery, and you may want someone to assist you at home. If you were given a prescription for narcotic medication, be aware that it is very addictive- use sparingly and only if necessary. PLEASE SEEK FURTHER EVALUATION AND MANAGEMENT AT YOUR DOCTORS OFFICE WITHIN THE NEXT 1-3 DAYS. IT IS YOUR RESPONSIBILITY TO MAKE AN APPOINTMENT FOR FOLOW-UP CARE. IF YOU HAVE A PRIMARY DOCTOR, PLEASE CALL THEIR OFFICE TO SCHEDULE AN APPOINTMENT FOR FOLLOW UP. IF YOU DO NOT HAVE A PRIMARY DOCTOR YOU CAN CALL OUR PHYSICIAN REFERRAL HOTLINE AT IF YOU CAN NOT AFFORD TO SEE A PHYSICIAN YOU CAN CHOSE FROM THE FOLLOWING [facility]: [facility] [address] [facility] [address] [facility] [address] [facility] [address] [facility] [address] [facility]. [facility]. [address] CARY MEYERS MD Nov 16, 2018 06:23
[2018-11-16] MEDS ORDERED: SOD CHLORIDE 0.9% 500 ML IV ONE (06:30)
[2018-11-16 07:20] VITALS: BP 162/78; PULSE 90; RESP 20
== END 2018-11-16 08:40 | disposition home or self-care (01) ==
LOC: E/R 04:27
DX: S93.402A Sprain of unspecified ligament of left ankle, initial encounter (principal); G40.909 Epilepsy, unspecified, not intractable, without status epilepticus; D64.9 Anemia, unspecified; E87.2 Acidosis; S01.512A Laceration without foreign body of oral cavity, initial encounter; I63.9 Cerebral infarction, unspecified; I12.9 Hypertensive chronic kidney disease with stage 1 through stage 4 chronic kidney disease, or unspecified chronic kidney disease; N18.9 Chronic kidney disease, unspecified; F17.210 Nicotine dependence, cigarettes, uncomplicated; R40.2242 Coma scale, best verbal response, confused conversation, at arrival to emergency department; R40.2352 Coma scale, best motor response, localizes pain, at arrival to emergency department; R40.2142 Coma scale, eyes open, spontaneous, at arrival to emergency department; W18.39XA Other fall on same level, initial encounter; Y92.9 Unspecified place or not applicable; Z86.73 Personal history of transient ischemic attack (TIA), and cerebral infarction without residual deficits; Z79.01 Long term (current) use of anticoagulants
CPT/HCPCS: 36415; 70450; 71045; 80048; 81001; 82962; 84484; 85025; 85610; 93005; 96374; J1885; J7040; Z7502; Z7610

== ENCOUNTER 2018-11-22 12:16 | Emergency (ER) | payer OTHER ==
[~2018-11-22] VITALS: Ht 170.2 cm; Wt 90.9 kg
--- NOTE | 2018-11-22 12:22 | ERD ---
ER Documentation Chief Complaint Chief Complaint 58-year-old male known alcoholic with chronic leg pain and frequent visits to the ER brought in by ambulance [place] after he was found intoxicated sitting on the ground. He denies falling. Denies any head injury or other injuries. He states he has leg pain that is unchanged from previous. No headache, shortness of breath, chest pain, abdominal pain HPI 58-year-old male with a past medical history of hypertension, heart valve replacement on Coumadin, chronic alcohol abuse with reported past alcohol withdr awal related seizures ROS All systems reviewed and are negative except as per history of present illness. Medications Home Meds Active Scripts Ibuprofen* (Motrin*) 600 Mg Tab, 600 MG PO Q6H PRN for PAIN AND/OR INFLAMMATION, #30 TAB Prov:CARY WOODRUFF MD 11/16/18 Discontinued Scripts Warfarin Sodium (Coumadin) 10 Mg Tablet, 10 MG PO DAILY for 7 Days, TAB Prov:NATALIE UNGER MD 11/11/18 Allergies Allergies: Coded Allergies: No Known Allergy (Unverified , 11/22/18) PMhx/Soc History of Surgery: Yes (HEART VALVE REPLACEMENT-ON COUMADIN) Anesthesia Reaction: No Hx Neurological Disorder: Yes (CVA) Hx Respiratory Disorders: No Hx Cardiac Disorders: Yes (HYPERTENSION) Hx Psychiatric Problems: No Hx Miscellaneous Medical Probl: No Hx Alcohol Use: Yes (ETOH ABUSE ) Hx Substance Use: No Hx Tobacco Use: Yes FmHx Family History: No diabetes Physical Exam Vitals Vital Signs Date Temp Pulse Resp B/P (MAP) Pulse Ox O2 O2 Flow FiO2 Time Delivery Rate 11/22/18 97.4 86 18 119/78 95 12:23 (92) Physical Exam Const: No acute distress, appears intoxicated. Unkempt Head: Atraumatic Eyes: Normal Conjunctiva ENT: Normal External Ears, Nose and Mouth. Neck: Full range of motion. No meningismus. Resp: Clear to auscultation bilaterally Cardio: Regular rate and rhythm, no murmurs Abd: Soft, non tender, non distended. Normal bowel sounds Skin: No petechiae or rashes Back: No midline or flank tenderness Ext: No cyanosis, or edema. No evidence of trauma. Nontender to palpation in bilateral lower extremities. Neur: Awake and alert, moving all extremities, no facial asymmetry. Psych: Normal Mood and Affect Procedures/MDM Initial Nursing notes reviewed. Previous Medical Records requested via the Electronic Health Record. EMERGENCY DEPARTMENT COURSE / MEDICAL DECISION MAKING: Patient is presenting intoxicated with no evidence of injury on exam. He has no acute deficits on neuro exam. Patient was observed in the ER for 3 hours with improvement of his mental status. He was ambulating with a steady gait and walked out of the ER prior to discharge paperwork being provided. Departure Diagnosis: Primary Impression: Alcoholic intoxication Complication of substance-induced condition: uncomplicated Qualified Codes: F10.920 - Alcohol use, unspecified with intoxication, uncomplicated Condition: Fair HOWARD LYNN MD Nov 22, 2018 12:22
[2018-11-22 12:23] VITALS: BP 119/78; PULSE 86; RESP 18; Ht 170.2 cm; Wt 90.9 kg
== END 2018-11-22 15:00 | disposition left against medical advice (07) ==
LOC: E/R 12:16
DX: F10.920 Alcohol use, unspecified with intoxication, uncomplicated (principal); R40.2142 Coma scale, eyes open, spontaneous, at arrival to emergency department; R40.2252 Coma scale, best verbal response, oriented, at arrival to emergency department; R40.2362 Coma scale, best motor response, obeys commands, at arrival to emergency department; I10 Essential (primary) hypertension; Z79.01 Long term (current) use of anticoagulants; Z86.73 Personal history of transient ischemic attack (TIA), and cerebral infarction without residual deficits; Z87.891 Personal history of nicotine dependence
CPT/HCPCS: 99282